=== PATIENT | female | born 1975 | race Caucasian/White ===

== ENCOUNTER 2021-09-18 09:33 | Emergency (ER) | payer OTHER ==
[~2021-09-18] VITALS: Ht 165.1 cm; Wt 90.7 kg
[2021-09-18 09:44] VITALS: BP_SYST 141
[2021-09-18] MEDS ORDERED: KETOROLAC TROMETHAMINE 60 MG/2 ML VIAL IM ONE (09:45)
[2021-09-18] MEDS ORDERED: DIAZEPAM 5 MG TABLET (VALIUM) PO ONE (09:45)
[2021-09-18] MEDS ORDERED: LIDOCAINE PATCH 5% 1 EA TP ONE (09:45)
[2021-09-18] MEDS ORDERED: ACETAMINOPHEN 500 MG TABLET PO ONE (09:45)
[2021-09-18] MEDS ORDERED: GABAPENTIN 100 MG CAPSULE PO ONE (11:30)
[2021-09-18] MEDS ORDERED: ACET-2634 PO (12:29)
[2021-09-18] MEDS ORDERED: NEU300 PO (12:29)
[2021-09-18] MEDS ORDERED: IBUP-1969 PO (12:29)
[2021-09-18] MEDS ORDERED: CYCL10TA24 PO (12:30)
[2021-09-18 12:48] VITALS: BP_SYST 129
== END 2021-09-18 12:48 | disposition home or self-care (01) ==
LOC: SED 09:33
DX: M54.40 Lumbago with sciatica, unspecified side (principal); Z79.899 Other long term (current) drug therapy
CPT/HCPCS: 96372; 99284; J1885

== ENCOUNTER 2022-07-03 01:41 | Emergency (ER) | payer OTHER ==
[~2022-07-03] VITALS: Ht 167.6 cm; Wt 81.6 kg
[~2022-07-03 01:41] MED LIST: ACET-2634 PO; CYCL10TA24 PO; IBUP-1969 PO; NEU300 PO
[2022-07-03 01:50] VITALS: BP_SYST 151
[2022-07-03 03:33] LABS: BASOPHILS % (AUTO) 0.4 % (0.0-2.0); EOSINOPHILS # (AUTO) 0.1 K/uL (0.0-0.4); HEMATOCRIT 39.5 % (36-48); LYMPHOCYTES # (AUTO) 1.7 K/uL (1.0-5.5); MEAN CORPUSCULAR HEMOGLOBIN 28 pg (27-31); MEAN CORPUSCULAR HGB CONC 33 % (32-36); MEAN CORPUSCULAR VOLUME 85 fL (79.0-98.0); MONOCYTES # (AUTO) 0.3 K/uL (0.0-1.0); MONOCYTES % (AUTO) 5.3 % (1.7-9.3); NEUTROPHILS # (AUTO) 3.9 K/uL (1.8-7.7); NEUTROPHILS % (AUTO) 65.3 % (40.0-70.0); PLATELET COUNT (AUTO) 238 K/uL (130-430); RED BLOOD CELL COUNT(AUTO) 4.64 MIL/uL (4.2-6.2); RED CELL DISTRIBUTION WIDTH 13.5 % (9.0-15.0); WHITE BLOOD COUNT (AUTO) 5.9 K/uL (4.8-10.8)
[2022-07-03 03:54] LABS: ALANINE AMINOTRANSFERASE 44 U/L (12-78); ALBUMIN 3.8 g/dL (3.4-4.8); ANION GAP 8 (5-15); ASPARTATE AMINOTRANSFERASE 28 U/L (10-37); CALCIUM 8.7 mg/dL (8.4-11.0); CHLORIDE 106 mmol/L (98-107); CREATININE 0.92 mg/dL (0.55-1.30); GFR AFRICAN AMERICAN 85 mL/min (>90); GLUCOSE 125 mg/dL (70-99); TOTAL BILIRUBIN 0.2 mg/dL (0.0-1.0); UREA NITROGEN, BLOOD 14 mg/dL (8-21)
[2022-07-03 09:44] VITALS: BP_SYST 132
== END 2022-07-03 09:43 | disposition home or self-care (01) ==
LOC: SED 01:41
DX: R07.9 Chest pain, unspecified (principal); I10 Essential (primary) hypertension; R51.9 Headache, unspecified; Z91.14 Patient's other noncompliance with medication regimen; Z79.899 Other long term (current) drug therapy
CPT/HCPCS: 36415; 71045; 80053; 84484; 85025; 93005; 99285

== ENCOUNTER → 2023-04-25 | Emergency (ER) | payer OTHER ==
[~2023-04-25] VITALS: Ht 167.6 cm; Wt 88.9 kg
[~2023-04-25] MED LIST changes: +HYDR-3917 PO; +MORPHINE 4 MG INJ. 4 MG/ML VIAL IVP ONE; +NACL 0.9% 1,000 ML IV ONE; +ONDA-8 TL; +ONDANSETRON HCL 4 MG/2 ML VIAL IVP ONE
[2023-04-25 03:16] VITALS: BP_SYST 148; PULSE 66; RESP 18; TEMP 97.3; O2SAT 100
[2023-04-25 03:49] LABS: ANION GAP 12 (5-15); CALCIUM 9.9 mg/dL (8.4-11.0); CARBON DIOXIDE 24 mmol/L (23-29); CHLORIDE 105 mmol/L (98-107); CREATININE 0.83 mg/dL (0.55-1.30); GFR AFRICAN AMERICAN 96 mL/min (>90); GLUCOSE 147 mg/dL (74-106); POTASSIUM 3.6 mmol/L (3.5-5.1); SODIUM SERUM 141 mmol/L (136-145); TOTAL BILIRUBIN 0.4 mg/dL (0.0-1.0); UREA NITROGEN, BLOOD 13 mg/dL (8-21)
[2023-04-25 03:50] LABS: ALANINE AMINOTRANSFERASE 60 U/L (12-78); ALBUMIN 3.8 g/dL (3.4-4.8); ASPARTATE AMINOTRANSFERASE 53 U/L (10-37); BASOPHILS % (AUTO) 0.2 % (0.0-2.0); EOSINOPHILS % (AUTO) 0.9 % (0.0-4.0); GFR NON AFRICAN-AMERICAN 79 mL/min (>90); HEMATOCRIT 41.7 % (36-48); HEMOGLOBIN 13.3 g/dL (12.0-16.0); LYMPHOCYTES # (AUTO) 1.9 K/uL (1.0-5.5); LYMPHOCYTES % (AUTO) 38.7 % (20.5-51.5); MEAN CORPUSCULAR HEMOGLOBIN 27 pg (27-31); MEAN CORPUSCULAR HGB CONC 32 % (32-36); MEAN CORPUSCULAR VOLUME 84 fL (79.0-98.0); MONOCYTES # (AUTO) 0.2 K/uL (0.0-1.0); MONOCYTES % (AUTO) 3.7 % (1.7-9.3); NEUTROPHILS # (AUTO) 2.8 K/uL (1.8-7.7); NEUTROPHILS % (AUTO) 56.5 % (40.0-70.0); PLATELET COUNT (AUTO) 221 K/uL (130-430); RED BLOOD CELL COUNT(AUTO) 4.97 MIL/uL (4.2-6.2); RED CELL DISTRIBUTION WIDTH 14.1 % (9.0-15.0); TOTAL PROTEIN, SERUM 7.3 g/dL (6.4-8.3); WHITE BLOOD COUNT (AUTO) 4.9 K/uL (4.8-10.8)
[2023-04-25 03:52] LABS: LIPASE 85 U/L (73-393)
[2023-04-25 03:57] LABS: BILIRUBIN,URINE NEGATIVE (NEGATIVE); BLOOD, URINE NEGATIVE (NEGATIVE); CLARITY/URINE CLEAR (CLEAR); COLOR,URINE YELLOW (YELLOW); GLUCOSE,URINE NEGATIVE (NEGATIVE); KETONES,URINE 3+ (NEGATIVE); LEUKOCYTE ESTERASE ,URINE NEGATIVE (NEGATIVE); NITRITE, URINE NEGATIVE (NEGATIVE); PROTEIN URINE TRACE (NEGATIVE); UROBILINOGEN,URINE 0.2 (0.2-1.0)
[2023-04-25 04:14] LABS: BACTERIA,URINE None Seen /HPF (None Seen); RBC,URINE 0-3 /HPF (0-3); WBC,URINE 0-3 /HPF (0-3)
[2023-04-25 05:40] VITALS: BP_SYST 128; PULSE 72; RESP 17; TEMP 97.2; O2SAT 98
== END | disposition home or self-care (01) ==
LOC: SED 03:09
DX: R10.13 Epigastric pain (principal); R11.2 Nausea with vomiting, unspecified; I10 Essential (primary) hypertension; Z79.899 Other long term (current) drug therapy
CPT/HCPCS: 99283; 96374; 96361; 80053; 81000; 83690; 85025; 84484; 36415; J2405; J7030; J2270

== ENCOUNTER 2023-05-08 00:25 | Emergency (ER) | payer OTHER ==
[~2023-05-08] VITALS: Ht 167.6 cm; Wt 87.1 kg
[~2023-05-08 00:25] MED LIST changes: -MORPHINE 4 MG INJ. 4 MG/ML VIAL IVP ONE; -NACL 0.9% 1,000 ML IV ONE; -ONDANSETRON HCL 4 MG/2 ML VIAL IVP ONE
[2023-05-08 00:34] VITALS: BP_SYST 148; PULSE 69; RESP 18; TEMP 97.9; O2SAT 100
[2023-05-08 01:51] LABS: BILIRUBIN,URINE NEGATIVE (NEGATIVE); BLOOD, URINE NEGATIVE (NEGATIVE); CLARITY/URINE CLEAR (CLEAR); COLOR,URINE YELLOW (YELLOW); GLUCOSE,URINE NEGATIVE (NEGATIVE); KETONES,URINE 3+ (NEGATIVE); LEUKOCYTE ESTERASE ,URINE NEGATIVE (NEGATIVE); NITRITE, URINE NEGATIVE (NEGATIVE); PROTEIN URINE NEGATIVE (NEGATIVE)
[2023-05-08] MEDS ORDERED: FAMOTIDINE 20 MG TABLET PO ONE (02:00)
[2023-05-08] MEDS ORDERED: MAG-AL HYDROX/SIMETH 30 ML UDC PO ONE (02:00)
[2023-05-08 02:35] LABS: CALCIUM 10.1 mg/dL (8.4-11.0); CREATININE 0.81 mg/dL (0.55-1.30); POTASSIUM 3.5 mmol/L (3.5-5.1)
[2023-05-08 02:37] LABS: BASOPHILS % (AUTO) 0.2 % (0.0-2.0); EOSINOPHILS % (AUTO) 0.7 % (0.0-4.0); HEMATOCRIT 41.8 % (36-48); HEMOGLOBIN 13.3 g/dL (12.0-16.0); LYMPHOCYTES # (AUTO) 1.8 K/uL (1.0-5.5); LYMPHOCYTES % (AUTO) 33.1 % (20.5-51.5); MEAN CORPUSCULAR HEMOGLOBIN 27 pg (27-31); MEAN CORPUSCULAR HGB CONC 32 % (32-36); MEAN CORPUSCULAR VOLUME 84 fL (79.0-98.0); MONOCYTES # (AUTO) 0.4 K/uL (0.0-1.0); MONOCYTES % (AUTO) 6.9 % (1.7-9.3); NEUTROPHILS # (AUTO) 3.2 K/uL (1.8-7.7); NEUTROPHILS % (AUTO) 59.1 % (40.0-70.0); PLATELET COUNT (AUTO) 237 K/uL (130-430); WHITE BLOOD COUNT (AUTO) 5.3 K/uL (4.8-10.8)
[2023-05-08 02:39] LABS: ALBUMIN 3.9 g/dL (3.4-4.8); TOTAL BILIRUBIN 0.6 mg/dL (0.0-1.0); TOTAL PROTEIN, SERUM 7.4 g/dL (6.4-8.3)
[2023-05-08] MEDS ORDERED: NACL 0.9% 1,000 ML IV ONE (03:30)
[2023-05-08] MEDS ORDERED: MORPHINE 4 MG INJ. 4 MG/ML VIAL IVP ONE (03:30)
[2023-05-08] MEDS ORDERED: FAMOTIDINE PF 20 MG/2 ML VIAL IVP ONE (03:30)
[2023-05-08] MEDS ORDERED: ESOM40CA53 PO (04:49)
[2023-05-08] MEDS ORDERED: ONDANSETRON 4 MG ODT TAB PO ONE (05:00)
[2023-05-08 05:07] VITALS: BP_SYST 148; PULSE 69; RESP 18; TEMP 97.9; O2SAT 100
== END 2023-05-08 05:10 | disposition home or self-care (01) ==
LOC: SED 00:25
DX: K76.0 Fatty (change of) liver, not elsewhere classified (principal); R16.1 Splenomegaly, not elsewhere classified; R10.13 Epigastric pain; R11.2 Nausea with vomiting, unspecified; I10 Essential (primary) hypertension; Z79.899 Other long term (current) drug therapy
CPT/HCPCS: 99285; 74176; 96374; 76700; 96361; 96375; 80053; 81001; 82150; 83690; 85025; 36415; 76376; 81003; Q0162; J3490; J2270; J7030

== ENCOUNTER 2023-09-01 01:28 | Emergency (ER) | payer OTHER ==
[~2023-09-01] VITALS: Ht 162.6 cm; Wt 83.9 kg
[~2023-09-01 01:28] MED LIST changes: +ESOM40CA53 PO
[2023-09-01 01:35] VITALS: BP_SYST 161; PULSE 70; RESP 20; TEMP 97.3; O2SAT 99
[2023-09-01 02:18] LABS: BASOPHILS % (AUTO) 0.4 % (0.0-2.0); EOSINOPHILS % (AUTO) 0.3 % (0.0-4.0); HEMOGLOBIN 12.1 g/dL (12.0-16.0); LYMPHOCYTES # (AUTO) 1.5 K/uL (1.0-5.5); LYMPHOCYTES % (AUTO) 21.8 % (20.5-51.5); MEAN CORPUSCULAR HEMOGLOBIN 29 pg (27-31); MEAN CORPUSCULAR HGB CONC 34 % (32-36); MEAN CORPUSCULAR VOLUME 86 fL (79.0-98.0); MONOCYTES # (AUTO) 0.4 K/uL (0.0-1.0); MONOCYTES % (AUTO) 6.3 % (1.7-9.3); NEUTROPHILS # (AUTO) 4.8 K/uL (1.8-7.7); NEUTROPHILS % (AUTO) 71.2 % (40.0-70.0); PLATELET COUNT (AUTO) 246 K/uL (130-430); RED CELL DISTRIBUTION WIDTH 13.9 % (9.0-15.0); WHITE BLOOD COUNT (AUTO) 6.8 K/uL (4.8-10.8)
[2023-09-01] MEDS: ONDANSETRON HCL 4 MG/2 ML VIAL IVP ONE (02:22)
[2023-09-01] MEDS: NACL 0.9% 1,000 ML IV ONE (02:23)
[2023-09-01] MEDS: FAMOTIDINE PF 20 MG/2 ML VIAL IVP ONE (02:23)
[2023-09-01 02:33] LABS: ANION GAP 9 (5-15); CALCIUM 9.3 mg/dL (8.4-11.0); CARBON DIOXIDE 26 mmol/L (23-29); CHLORIDE 106 mmol/L (98-107); CREATININE 0.73 mg/dL (0.55-1.30); GFR AFRICAN AMERICAN 111 mL/min (>90); GLUCOSE 120 mg/dL (74-106); POTASSIUM 3.2 mmol/L (3.5-5.1); SODIUM SERUM 141 mmol/L (136-145); UREA NITROGEN, BLOOD 11 mg/dL (8-21)
[2023-09-01 02:37] LABS: GFR NON AFRICAN-AMERICAN 92 mL/min (>90)
[2023-09-01 02:40] LABS: ALANINE AMINOTRANSFERASE 292 U/L (12-78); ALBUMIN 3.4 g/dL (3.4-4.8); ASPARTATE AMINOTRANSFERASE 386 U/L (10-37); BILIRUBIN,DIRECT 0.2 mg/dL (0.0-0.3); LIPASE 40 U/L (16-77); TOTAL BILIRUBIN 0.4 mg/dL (0.0-1.0); TOTAL PROTEIN, SERUM 6.9 g/dL (6.4-8.3)
[2023-09-01] MEDS: MAG-AL HYDROX/SIMETH 30 ML UDC PO ONE (03:13)
[2023-09-01] MEDS: LIDOCAINE VISCOUS 2%, 15 ML UDC MM ONE (03:13)
[2023-09-01] MEDS ORDERED: ONDA-8 TL (03:32)
[2023-09-01] MEDS ORDERED: SUCR1TAB2 PO (03:32)
[2023-09-01] MEDS ORDERED: FAMO20TA8 PO (03:32)
[2023-09-01] MEDS: MORPHINE 4 MG INJ. 4 MG/ML VIAL IVP ONE (03:55)
[2023-09-01 05:08] VITALS: BP_SYST 115; PULSE 65; RESP 16; TEMP 98.2; O2SAT 97
== END 2023-09-01 05:08 | disposition home or self-care (01) ==
LOC: SED 01:28
DX: K29.70 Gastritis, unspecified, without bleeding (principal); K80.20 Calculus of gallbladder without cholecystitis without obstruction; I10 Essential (primary) hypertension; Z79.899 Other long term (current) drug therapy
CPT/HCPCS: 99285; 74177; 96374; 71045; 96375; 96361; 80076; 80048; 83690; 85025; 84484; 36415; 93005; 81025; J3490; J2405; J2270; Q9967; J7030; J2001